=== PATIENT | female | born 1980 | race Caucasian/White ===

== ENCOUNTER 2017-08-07 22:39 | Emergency (ER) | payer OTHER ==
[~2017-08-07] VITALS: Ht 162.6 cm; Wt 77.1 kg
== END 2017-08-08 06:51 | disposition home or self-care (01) ==
LOC: ER 22:39
DX: M94.0 Chondrocostal junction syndrome [Tietze] (principal)

== ENCOUNTER 2018-11-03 09:45 | Emergency (ER) | payer OTHER ==
[~2018-11-03] VITALS: Ht 157.5 cm; Wt 81.6 kg
[2018-11-03] MEDS ORDERED: PEPCID20 MG (10:25)
[2018-11-03] MEDS ORDERED: CONEX TABLET1 EACH (10:26)
[2018-11-03] MEDS ORDERED: HYOSCYAMINE0.125 MG (10:27)
== END 2018-11-03 15:01 | disposition home or self-care (01) ==
LOC: ER 09:45
DX: R10.13 Epigastric pain (principal); R19.7 Diarrhea, unspecified

== ENCOUNTER 2021-04-16 05:48 | Emergency (ER) | payer OTHER ==
[~2021-04-16] VITALS: Ht 162.6 cm; Wt 86.2 kg
[~2021-04-16 05:48] MED LIST: CONEX TABLET1 EACH; HYOSCYAMINE0.125 MG; PEPCID20 MG
== END 2021-04-16 10:56 | disposition home or self-care (01) ==
LOC: ER 05:48
DX: R10.13 Epigastric pain (principal)

== ENCOUNTER 2021-05-07 05:47 | Emergency (ER) | payer OTHER ==
[~2021-05-07] VITALS: Ht 162.6 cm; Wt 86.2 kg
== END 2021-05-07 11:21 | disposition home or self-care (01) ==
LOC: ER 05:47
DX: K21.9 Gastro-esophageal reflux disease without esophagitis (principal); R10.13 Epigastric pain

== ENCOUNTER 2021-10-21 04:06 | Emergency (ER) | payer OTHER ==
[~2021-10-21] VITALS: Ht 162.6 cm; Wt 77.1 kg
== END 2021-10-21 11:08 | disposition home or self-care (01) ==
LOC: ER 04:06
DX: R10.13 Epigastric pain (principal); Z20.822 Contact with and (suspected) exposure to COVID-19; K75.3 Granulomatous hepatitis, not elsewhere classified; R11.0 Nausea; R19.7 Diarrhea, unspecified

== ENCOUNTER 2022-01-30 09:09 | Emergency (ER) | payer OTHER ==
[~2022-01-30] VITALS: Ht 162.6 cm; Wt 78.5 kg
[2022-01-30] MEDS ORDERED: PEPCID AC20 MG PO (14:21)
== END 2022-01-30 14:39 | disposition home or self-care (01) ==
LOC: ER 09:09
DX: R10.84 Generalized abdominal pain (principal); R07.89 Other chest pain; R06.02 Shortness of breath; Z20.828 Contact with and (suspected) exposure to other viral communicable diseases